=== PATIENT | female | born 1965 | race Caucasian/White ===

== ENCOUNTER 2020-07-30 07:29 | Day surgery (SDC) | payer BC ==
[~2020-07-30] VITALS: Ht 162.6 cm; Wt 60.5 kg
[2020-07-30] MEDS ORDERED: fentaNYL/PF 50MCG/1 ML 2ML syringe ONE (07:34)
[2020-07-30 07:35] VITALS: BP 96/38
[2020-07-30] MEDS ORDERED: MIDAZolam 5mg/5ml vial ONE (07:35)
[2020-07-30 08:48] VITALS: BP 99/52
[2020-07-30 08:58] VITALS: BP 101/52
[2020-07-30 09:08] VITALS: BP 99/56
[2020-07-30 09:18] VITALS: BP 103/54
== END 2020-07-30 09:40 | disposition home or self-care (01) ==
LOC: GI LAB 07:29
PROVIDERS: ATTEND Internal Medicine Gastroenterology
DX: Z12.11 Encounter for screening for malignant neoplasm of colon (principal); K63.5 Polyp of colon; K64.0 First degree hemorrhoids; K62.89 Other specified diseases of anus and rectum
CPT/HCPCS: 45380; 99152; J2250; J3010; J7040; 36415; 99153; A4620

== ENCOUNTER 2021-03-24 14:17 | Outpatient (CLI) | payer BC | END 2021-03-24 23:59 | disposition home or self-care (01) | LOC: RAD 14:17 | PROVIDERS: ATTEND Family Medicine | DX: S76.301A Unspecified injury of muscle, fascia and tendon of the posterior muscle group at thigh level, right thigh, initial encounter (principal); S46.011A Strain of muscle(s) and tendon(s) of the rotator cuff of right shoulder, initial encounter; S39.013A Strain of muscle, fascia and tendon of pelvis, initial encounter; M25.511 Pain in right shoulder; X58.XXXA Exposure to other specified factors, initial encounter; Y93.89 Activity, other specified; Y92.89 Other specified places as the place of occurrence of the external cause; Y99.8 Other external cause status | CPT/HCPCS: 73030 ==